=== PATIENT | female | born 1955 | race Caucasian/White ===

== ENCOUNTER → 2018-11-17 | Outpatient (CLI) | payer OTHER ==
[~2018-11-17] MED LIST: AMBIEN 5 MG TABL5 M1; LISINOPRIL20 MG
== END ==
LOC: M.ULTRA 11-13 09:30
DX: R16.0 Hepatomegaly, not elsewhere classified (principal); R94.5 Abnormal results of liver function studies

== ENCOUNTER → 2018-12-14 | Outpatient (CLI) | payer OTHER ==
[~2018-12-14] MED LIST changes: +CELEXA10 MG PO; -LISINOPRIL20 MG; +MELATONIN5 M1 PO; +ZESTORETIC 20-1 EAC3 PO
== END ==
LOC: M.LAB 05:50
DX: E87.6 Hypokalemia (principal)

== ENCOUNTER 2018-12-15 13:28 | Inpatient (IN) | payer OTHER ==
[~2018-12-15] VITALS: Ht 167.6 cm; Wt 86.6 kg
[2018-12-15] VITALS (15 sets, daily range): BP systolic 99–142; BP diastolic 48–95
[~2018-12-15 13:28] MED LIST changes: -CELEXA10 MG PO; -MELATONIN5 M1 PO
[2018-12-15] MEDS ORDERED: CELEXA10 MG PO (13:35)
[2018-12-15 14:00] LABS: ABSOLUTE LYMPHOCYTES 0.9 thou/uL (0.8-5.3); ABSOLUTE MONOCYTES 0.6 thou/uL (0.0-1.2); ABSOLUTE NEUTROPHILS 7.1 thou/uL (1.6-8.1); BASOPHILS 0.4 %; EOSINOPHILS 0.1 %; HEMATOCRIT 26.2 % (37.0-47.0); HEMOGLOBIN 9.1 gm/dL (12.0-15.0); LYMPHOCYTES 10.1 %; MCH 36.5 pg (26.0-34.0); MCHC 34.9 g/dL (28.0-37.0); MCV 104.5 fL (80.0-100.0); MONOCYTES 7.2 %; MPV 8.4 fl. (7.2-11.1); NUCLEATED RBCS 0 /100WBC; PLATELET COUNT* 120 thou/uL (150-400); POLYS 82.2 %; RBC 2.51 mil/uL (4.20-5.00); RDW-CV 13.8 % (10.5-14.5); WBC 8.6 thou/uL (4.0-11.0)
[2018-12-15 14:09] LABS: ANION GAP 16 mmol/L (7-16); BUN 42 mg/dL (7-18); CALCIUM 9.7 mg/dL (8.5-10.1); CHLORIDE 94 mmol/L (98-107); CO2 25 mmol/L (21-32); CREATININE 1.4 mg/dL (0.6-1.3); GLUCOSE 180 mg/dL (70-99); POTASSIUM 3.3 mmol/L (3.5-5.1); SODIUM 135 mmol/L (136-145)
[2018-12-15 14:10] LABS: INR 2.1; PROTIME 21.4 Seconds (9.20-11.50)
[2018-12-15 14:18] LABS: ALBUMIN 3.3 g/dL (3.4-5.0); ALKALINE PHOSPHATASE 77 U/L (46-116); LIPASE 167 U/L (73-393); SGOT 166 U/L (15-37); SGPT 78 U/L (30-65); TOTAL BILIRUBIN 7.5 mg/dL (<0.1-1.0); TOTAL PROTEIN 7.1 g/dL (6.4-8.2); TROPONIN-I LEVEL <0.06 ng/mL (<0.06)
--- NOTE | 2018-12-15 14:44 | EKG ---
[place] [address] ELECTROCARDIOGRAM REPORT Name: BRUNA CARL Room: [facility]#: [id number] Admission: 12/15/18 Attend Phys: Discharge: Date of : 55 Report #: [id number] THIS REPORT FOR: //name// [facility] ED Test Date: 2018-12-15 Test Time: 13:45:07 Pat Name: BRUNA CARL Department: Room: Gender: F Senior Packaging Engineer: : 1955 Requested By: Lopez Brown Order Number: [id number] MD: Sushant Reyes Measurements Intervals [place] Rate: 103 P: 40 VT: 129 QRS: -23 QRSD: 83 T: 19 QT: 380 QTc: 498 Interpretive Statements Sinus tachycardia Borderline left axis deviation Borderline T abnormalities, diffuse leads Borderline prolonged QT interval Baseline wander in lead(s) I,III,aVL No previous ECG available for comparison Electronically Signed On 12-15-2018 14:44:12 CDT by Sushant Reyes [email or web address] <ELECTRONICALLY SIGNED> By: Sushant Reyes MD, [facility] 12/15/18 1444 1345 [id number] Sushant Reyes MD, [facility] /EPI
[2018-12-15 15:06] LABS: URINE BILIRUBIN NEGATIVE (Negative); URINE BLOOD 3+ (Negative); URINE CLARITY CLEAR; URINE COLOR YELLOW; URINE GLUCOSE-RANDOM NEGATIVE (Negative); URINE KETONES NEGATIVE (Negative); URINE LEUKOCYTES-REFLEX TRACE (Negative); URINE NITRITE-REFLEX NEGATIVE (Negative); URINE PROTEIN NEGATIVE (Negative); URINE UROBILINOGEN 0.2 E.U./dl (0.2-1.0)
[2018-12-15 15:27] LABS: MUCUS 0-3 Light strn/LPF (None Seen); SQUAMOUS >10 Many /LPF (0-3)
[2018-12-15 15:28] LABS: HYALINE CASTS 0-3 Few /LPF (None Seen); URINE RBC 0-2 Rare /HPF (0-2); URINE WBC-REFLEX 0-5 Rare /HPF (0-5)
[2018-12-15 15:29] LABS: BACTERIA-REFLEX 1-9 Few /HPF (None Seen); CRYSTALS None Seen /LPF (None Seen)
[2018-12-15 17:48] LABS: AMP/METHAMP Negative (Negative); BARBITURATES Negative (Negative); BENZODIAZEPINES Negative (Negative); COCAINE Negative (Negative); METHADONE Negative (Negative); OPIATES Negative (Negative); PCP Negative (Negative); THC Negative (Negative)
[2018-12-15 17:54] LABS: MAGNESIUM 0.9 mg/dL (1.8-2.4)
[2018-12-15 20:16] LABS: ABSOLUTE LYMPHOCYTES 1.2 thou/uL (0.8-5.3); ABSOLUTE NEUTROPHILS 5.6 thou/uL (1.6-8.1); BASOPHILS 0.4 %; HEMATOCRIT 21.7 % (37.0-47.0); HEMOGLOBIN 7.6 gm/dL (12.0-15.0); LYMPHOCYTES 15.6 %; MCH 36.7 pg (26.0-34.0); MCHC 35.3 g/dL (28.0-37.0); MONOCYTES 12.5 %; MPV 8.1 fl. (7.2-11.1); NUCLEATED RBCS 0 /100WBC; PLATELET COUNT* 95 thou/uL (150-400); POLYS 71.5 %; RBC 2.08 mil/uL (4.20-5.00); RDW-CV 13.9 % (10.5-14.5); WBC 7.8 thou/uL (4.0-11.0)
[2018-12-15] MEDS ORDERED: MELATONIN5 M1 PO (21:17)
[2018-12-16] VITALS (27 sets, daily range): BP systolic 93–149; BP diastolic 44–79
[2018-12-16 05:15] LABS: ABSOLUTE LYMPHOCYTES 1.9 thou/uL (0.8-5.3); ABSOLUTE MONOCYTES 1.3 thou/uL (0.0-1.2); ABSOLUTE NEUTROPHILS 5.8 thou/uL (1.6-8.1); BASOPHILS 0.3 %; EOSINOPHILS 0.5 %; HEMATOCRIT 23.5 % (37.0-47.0); HEMOGLOBIN 8.3 gm/dL (12.0-15.0); LYMPHOCYTES 20.9 %; MCH 35.8 pg (26.0-34.0); MCHC 35.2 g/dL (28.0-37.0); MCV 101.8 fL (80.0-100.0); MONOCYTES 14.2 %; MPV 8.4 fl. (7.2-11.1); NUCLEATED RBCS 0 /100WBC; PLATELET COUNT* 86 thou/uL (150-400); POLYS 64.1 %; RBC 2.31 mil/uL (4.20-5.00); RDW-CV 15.7 % (10.5-14.5); WBC 9.1 thou/uL (4.0-11.0)
[2018-12-16 05:50] LABS: ALBUMIN 2.7 g/dL (3.4-5.0); CALCIUM 8.7 mg/dL (8.5-10.1); MAGNESIUM 2.2 mg/dL (1.8-2.4); POTASSIUM 3.2 mmol/L (3.5-5.1); TOTAL BILIRUBIN 5.7 mg/dL (<0.1-1.0); TOTAL PROTEIN 5.9 g/dL (6.4-8.2)
[2018-12-16 06:15] LABS: APTT 32.2 Seconds (25.0-31.3); INR 1.9
[2018-12-17] VITALS (27 sets, daily range): BP systolic 95–168; BP diastolic 38–79
[2018-12-17 03:56] LABS: ABSOLUTE BASOPHILS 0.1 thou/uL (0.0-0.2); ABSOLUTE EOSINOPHILS 0.1 thou/uL (0.0-0.7); ABSOLUTE LYMPHOCYTES 2.3 thou/uL (0.8-5.3); ABSOLUTE MONOCYTES 0.9 thou/uL (0.0-1.2); BASOPHILS 0.8 %; EOSINOPHILS 1.8 %; HEMATOCRIT 20.1 % (37.0-47.0); LYMPHOCYTES 31.1 %; MCHC 34.2 g/dL (28.0-37.0); MCV 102.6 fL (80.0-100.0); MONOCYTES 11.7 %; MPV 7.6 fl. (7.2-11.1); NUCLEATED RBCS 0 /100WBC; PLATELET COUNT* 82 thou/uL (150-400); POLYS 54.6 %; RBC 1.96 mil/uL (4.20-5.00); RDW-CV 16.4 % (10.5-14.5); WBC 7.4 thou/uL (4.0-11.0)
[2018-12-17 04:47] LABS: HEMOGLOBIN 6.9 gm/dL (12.0-15.0)
[2018-12-17 11:43] LABS: HEMATOCRIT 23.4 % (37.0-47.0); HEMOGLOBIN 8.2 gm/dL (12.0-15.0)
[2018-12-17 12:17] LABS: CALCIUM 8.9 mg/dL (8.5-10.1); POTASSIUM 3.3 mmol/L (3.5-5.1)
--- NOTE | 2018-12-17 15:48 | CON ---
[address] [address] CONSULTATION Name: BRUNA CARL Room: [address] IN ..#: [id number] Admission: 12/15/18 Attend Phys: Robb Medeiros MD Discharge: Date of : 55 Report #: [id number] THIS REPORT FOR: //name// CC: Robb Lorenzo DO DICTATED BY: Elisha Goodman [facility] DATE OF SERVICE: 12/16/2018 Please note at the time of this dictation the patient was seen and physically examined by myself. REASON FOR CONSULTATION: GI bleed. HISTORY OF PRESENT ILLNESS: This is a 63-year-old female who presented to the Emergency Room with having progressive nausea and vomiting in which she noted coffee-ground emesis and black tarry stools. The patient underwent an EGD and colonoscopy by Dr. Perez on Friday as an outpatient. She states that she went home. Since she got home, she did notice a blood clot stool, but the rest of her stools were brown. By later on that evening and into the night, she started having nausea and vomiting probably 5-6 times that was coffee-ground in appearance and then she also began having black tarry stools. She called our office then on Friday morning and she was instructed to go to the Emergency Room for further evaluation. When she got to the Emergency Room, her hemoglobin was 9.1. On 11/09, hemoglobin was 10.9. She did have EGD which showed some gastritis and a duodenal biopsy. She also had a colonoscopy that had 3 polyps that were removed as well. ALLERGIES: CODEINE. MEDICATIONS: From home are Celexa and lisinopril. PAST MEDICAL HISTORY: Hypertension and depression. PAST SURGICAL HISTORY: Negative. FAMILY HISTORY: Noncontributory. SOCIAL HISTORY: She has never smoked. Alcohol use: She has 3 hard liquor drinks a day and has done this for some time. Denies any illegal drug use at this time. REVIEW OF SYSTEMS: Twelve-point review of systems is essentially negative except what [place] [address] CONSULTATION Name: BRUNA CARL Room: [address] IN [facility]#: [id number] Admission: 12/15/18 Attend Phys: Robb Medeiros MD Discharge: Date of : 55 Report #: [id number] PHYSICAL EXAMINATION: VITAL SIGNS: Temperature 37.7, pulse 86, respirations 14, blood pressure 130/61. HEART: Regular rate and rhythm. LUNGS: Clear. ABDOMEN: Soft, positive bowel sounds in all 4 quadrants with no masses or tenderness noted. LABORATORY DATA: Hemoglobin on admission was 9.1, back on 11/09 she was 10.9, she is currently 8.3 this morning. White count is 9.1, platelets are 86,000. She did receive a unit of blood when she was at 7.6 bringing her up to 8.3. MCV was 101.8. Total bili is 5.7, alk phos is 56, ALT is 61, AST is 122. It was also noted BUN was 36 and creatinine was 1 with a GFR of 56. Her urine drug screen was negative. CT of the abdomen and pelvis showed severe fatty liver disease with some cirrhotic changes noted, which the patient is unaware of. IMPRESSION: 1. Gastrointestinal bleed, upper. 2. Status post EGD and colonoscopy with biopsies on Friday with Dr. Perez. 3. Thrombocytopenia. 4. Hypercoagulability state. 5. Elevated LFTs. 6. Alcoholic cirrhosis. 7. History of fatty liver disease. 8. Alcohol abuse. PLAN: 1. EGD today with Dr. Perez. 2. Continue her Protonix drip. 3. Transfuse to keep her hemoglobin greater than 7. 4. Further recommendations to be made once the procedure has been performed. Thank you for allowing us to participate in this patient's care. Please do not hesitate to call with any questions in regard to this consult. Agree with above assessment and plan by Elisha Goodman <ELECTRONICALLY SIGNED> By: Rodrigo Perez MD 12/17/18 1548 [id number] Perez MD /nt
[2018-12-18] VITALS (7 sets, daily range): BP systolic 129–146; BP diastolic 54–92
[2018-12-18 04:38] LABS: ABSOLUTE EOSINOPHILS 0.1 thou/uL (0.0-0.7); ABSOLUTE LYMPHOCYTES 1.6 thou/uL (0.8-5.3); ABSOLUTE MONOCYTES 0.7 thou/uL (0.0-1.2); ABSOLUTE NEUTROPHILS 3.7 thou/uL (1.6-8.1); BASOPHILS 0.8 %; EOSINOPHILS 2.3 %; HEMATOCRIT 21.9 % (37.0-47.0); HEMOGLOBIN 7.6 gm/dL (12.0-15.0); LYMPHOCYTES 26.5 %; MCH 34.3 pg (26.0-34.0); MCHC 34.5 g/dL (28.0-37.0); MCV 99.4 fL (80.0-100.0); MONOCYTES 11.1 %; MPV 7.6 fl. (7.2-11.1); NUCLEATED RBCS 0 /100WBC; PLATELET COUNT* 80 thou/uL (150-400); POLYS 59.3 %; RDW-CV 18.3 % (10.5-14.5); WBC 6.2 thou/uL (4.0-11.0)
[2018-12-18 04:50] LABS: CALCIUM 8.7 mg/dL (8.5-10.1); CREATININE 0.9 mg/dL (0.6-1.3); MAGNESIUM 1.1 mg/dL (1.8-2.4)
[2018-12-18 22:10] LABS: HEPATITIS B SURFACE AG Negative (Negative)
[2018-12-19] VITALS (10 sets, daily range): BP systolic 105–147; BP diastolic 40–69
[2018-12-19 04:23] LABS: HEMATOCRIT 23.3 % (37.0-47.0); HEMOGLOBIN 7.9 gm/dL (12.0-15.0); MCHC 33.8 g/dL (28.0-37.0); MCV 100.5 fL (80.0-100.0); MPV 7.9 fl. (7.2-11.1); RBC 2.32 mil/uL (4.20-5.00); RDW-CV 18.1 % (10.5-14.5); WBC 11.3 thou/uL (4.0-11.0)
[2018-12-19 04:47] LABS: CALCIUM 8.6 mg/dL (8.5-10.1); MAGNESIUM 1.8 mg/dL (1.8-2.4); POTASSIUM 3.7 mmol/L (3.5-5.1)
[2018-12-19 13:08] LABS: HEMATOCRIT 23.3 % (37.0-47.0); HEMOGLOBIN 8.1 gm/dL (12.0-15.0)
[2018-12-19 18:24] LABS: HEMATOCRIT 22.2 % (37.0-47.0); HEMOGLOBIN 7.8 gm/dL (12.0-15.0)
[2018-12-19 22:12] LABS: URINE BLOOD 3+ (Negative); URINE CLARITY CLEAR; URINE COLOR DARK YELLOW; URINE GLUCOSE-RANDOM TRACE (Negative); URINE KETONES NEGATIVE (Negative); URINE LEUKOCYTES-REFLEX NEGATIVE (Negative); URINE NITRITE-REFLEX NEGATIVE (Negative); URINE PROTEIN TRACE (Negative); URINE SPECIFIC GRAVITY 1.025 (1.005-1.030)
[2018-12-19 22:14] LABS: ICTOTEST (BILI CONFIRMATORY) Positive (Negative); URINE BILIRUBIN 1+ (Negative)
[2018-12-19 22:27] LABS: SQUAMOUS 4-10 Moderate /LPF (0-3); TRANSITIONAL EPITHEL CELL 0-3 Few /LPF (None Seen); URINE WBC-REFLEX 6-15 Few /HPF (0-5)
[2018-12-19 22:28] LABS: CRYSTALS None Seen /LPF (None Seen); HYALINE CASTS 0-3 Few /LPF (None Seen); MUCUS >6 Heavy strn/LPF (None Seen)
[2018-12-20] VITALS (27 sets, daily range): BP systolic 98–160; BP diastolic 46–67
[2018-12-20 03:41] LABS: MCH 34.4 pg (26.0-34.0); MCHC 33.8 g/dL (28.0-37.0); MCV 101.7 fL (80.0-100.0); MPV 8.5 fl. (7.2-11.1); RBC 1.96 mil/uL (4.20-5.00); WBC 10.6 thou/uL (4.0-11.0)
[2018-12-20 03:59] LABS: CALCIUM 8.2 mg/dL (8.5-10.1); MAGNESIUM 1.6 mg/dL (1.8-2.4); PHOSPHORUS* 2.8 mg/dL (2.5-4.9); POTASSIUM 3.2 mmol/L (3.5-5.1)
[2018-12-20 05:43] LABS: HEMOGLOBIN 6.7 gm/dL (12.0-15.0)
[2018-12-20 14:34] LABS: HEMATOCRIT 24.9 % (37.0-47.0); HEMOGLOBIN 8.6 gm/dL (12.0-15.0)
[2018-12-20 14:46] LABS: MAGNESIUM 1.9 mg/dL (1.8-2.4); POTASSIUM 3.5 mmol/L (3.5-5.1)
[2018-12-21] VITALS (9 sets, daily range): BP systolic 100–128; BP diastolic 47–60
[2018-12-21 04:05] LABS: HEMATOCRIT 23.7 % (37.0-47.0); HEMOGLOBIN 8.1 gm/dL (12.0-15.0); MCHC 34.1 g/dL (28.0-37.0); MCV 99.7 fL (80.0-100.0); MPV 8.2 fl. (7.2-11.1); RBC 2.38 mil/uL (4.20-5.00); RDW-CV 17.9 % (10.5-14.5); WBC 8.9 thou/uL (4.0-11.0)
[2018-12-21 04:25] LABS: ALBUMIN 2.3 g/dL (3.4-5.0); CALCIUM 7.9 mg/dL (8.5-10.1); MAGNESIUM 1.8 mg/dL (1.8-2.4); POTASSIUM 3.9 mmol/L (3.5-5.1); TOTAL BILIRUBIN 3.1 mg/dL (<0.1-1.0); TOTAL PROTEIN 5.1 g/dL (6.4-8.2)
[2018-12-21 11:10] LABS: ANA INTERPRETATION Positive (Negative)
[2018-12-21] MEDS ORDERED: PROTONIX40 M1 PO (11:36)
[2018-12-21] MEDS ORDERED: PRENA1 TRUE CO1 EACH PO (13:48)
[2018-12-21 14:05] LABS: ABSOLUTE BASOPHILS 0.1 thou/uL (0.0-0.2); ABSOLUTE EOSINOPHILS 0.2 thou/uL (0.0-0.7); ABSOLUTE LYMPHOCYTES 2.3 thou/uL (0.8-5.3); ABSOLUTE MONOCYTES 1.5 thou/uL (0.0-1.2); ABSOLUTE NEUTROPHILS 6.6 thou/uL (1.6-8.1); BASOPHILS 0.7 %; EOSINOPHILS 1.7 %; HEMATOCRIT 27.6 % (37.0-47.0); HEMOGLOBIN 9.4 gm/dL (12.0-15.0); LYMPHOCYTES 21.9 %; MCH 34.6 pg (26.0-34.0); MCHC 34.1 g/dL (28.0-37.0); MCV 101.4 fL (80.0-100.0); MPV 8.5 fl. (7.2-11.1); NUCLEATED RBCS 0 /100WBC; PLATELET COUNT* 156 thou/uL (150-400); POLYS 61.7 %; RBC 2.72 mil/uL (4.20-5.00); RDW-CV 18.3 % (10.5-14.5); WBC 10.7 thou/uL (4.0-11.0)
== END 2018-12-21 14:25 | disposition home or self-care (01) | DRG 377 ==
LOC: M.ERS 13:28 → M.ICU 14:40 → M.TBA-ER 14:40 → M.2W 14:40 → M.ICU 19:33 → M.2W 12-17 19:45 → M.ICU 12-19 13:30
PROVIDERS: Family Medicine; Internal Medicine; Internal Medicine Gastroenterology; Nurse Practitioner Adult Health; ADMIT Family Medicine
PROC: 30233N1 Transfusion of Nonautologous Red Blood Cells into Peripheral Vein, Percutaneous Approach (ICD-10-PCS; principal; 2018-12-15)
PROC: 0W3P8ZZ Control Bleeding in Gastrointestinal Tract, Via Natural or Artificial Opening Endoscopic (ICD-10-PCS; 2018-12-16)
DX: K25.4 Chronic or unspecified gastric ulcer with hemorrhage (principal); E43 Unspecified severe protein-calorie malnutrition; N17.0 Acute kidney failure with tubular necrosis; D68.59 Other primary thrombophilia; K57.92 Diverticulitis of intestine, part unspecified, without perforation or abscess without bleeding; I12.9 Hypertensive chronic kidney disease with stage 1 through stage 4 chronic kidney disease, or unspecified chronic kidney disease; N18.2 Chronic kidney disease, stage 2 (mild); E80.6 Other disorders of bilirubin metabolism; D69.6 Thrombocytopenia, unspecified; K70.30 Alcoholic cirrhosis of liver without ascites; E83.42 Hypomagnesemia; F32.9 Major depressive disorder, single episode, unspecified; Z79.899 Other long term (current) drug therapy; Z88.5 Allergy status to narcotic agent; K76.0 Fatty (change of) liver, not elsewhere classified; F10.10 Alcohol abuse, uncomplicated; K76.89 Other specified diseases of liver